=== PATIENT | male | born 1950 | race Caucasian/White ===

== ENCOUNTER 2019-11-30 18:58 | Emergency (ER) | payer MEDICARE, BC ==
--- NOTE | 2019-11-30 20:31 | ER Document Report ---
ED Medical Screen (RME) - General Chief Complaint: Urinary Problem Stated Complaint: BLOOD IN URINE, DIARRHEA Time Seen by Provider: 11/30/19 20:28 - HPI Notes: 11/30/19 20:30 Patient is a 69-year-old male with a history of hypertension who presents complaining of feeling fatigued and having nasal congestion/discharge, occasional dry cough, dark-colored urine, diarrhea over the past 2 to 3 days. Patient states that he has felt some low-grade fevers as well. No chest pain, shortness of breath, or abdominal pain. I have treated and performed a rapid initial assessment of this patient. A comprehensive ED assessment and evaluation of the patient, analysis of test results and completion of medical decision making process will be conducted by additional ED providers. PHYSICAL EXAMINATION: GENERAL: Well-appearing, well-nourished and in no acute distress. Answers questions appropriately. Lungs: CTAB Heart: RRR - Related Data Allergies/Adverse Reactions: No Known Allergies Allergy (Unverified 11/30/19 20:26) Physical Exam - Vital signs Vitals: Temp Pulse Resp BP Pulse Ox 99.3 F 86 16 152/92 H 92 11/30/19 19:07 11/30/19 19:07 11/30/19 19:07 11/30/19 19:07 11/30/19 19:07 Course - Vital Signs Vital signs: Temp Pulse Resp BP Pulse Ox 99.3 F 86 16 152/92 H 92 11/30/19 19:07 11/30/19 19:07 11/30/19 19:07 11/30/19 19:07 11/30/19 19:07
--- NOTE | 2019-11-30 20:55 | RADIOLOGY REPORT (SQ) ---
EXAM DESCRIPTION: XR CHEST 2 VIEWS COMPLETED DATE/TME: 11/30/2019 20:28 CLINICAL HISTORY: 69 years, Male, cough COMPARISON: None. NUMBER OF VIEWS: Two TECHNIQUE: Frontal and lateral radiographs were acquired LIMITATIONS: None. FINDINGS: Cardiac and mediastinal contours are normal. However, the thoracic aorta is somewhat tortuous. Lungs are clear. No pleural effusion or pneumothorax. IMPRESSION: No acute disease. copyright 2010 [employer]- All Rights Reserved
[2019-11-30 21:06] LABS: ABSOLUTE EOSINOPHILS # (AUTO) 0.1 10^3/uL (0.0-0.6); ABSOLUTE LYMPHOCYTES (AUTO) 0.6 10^3/uL (0.5-4.7); ABSOLUTE MONOCYTES (AUTO) 0.3 10^3/uL (0.1-1.4); ABSOLUTE NEUT (AUTO) 3.1 10^3/uL (1.7-8.2); BASOPHILS % (AUTO) 0.3 % (0-2); HEMATOCRIT 47.3 % (37.9-51.0); HEMOGLOBIN 16.2 g/dL (13.5-17.0); LYMPHOCYTES % (AUTO) 14.7 % (13-45); MEAN CORPUSCULAR HEMOGLOBIN 30.7 pg (27.0-33.4); MEAN CORPUSCULAR HGB CONC 34.2 g/dL (32.0-36.0); MEAN CORPUSCULAR VOLUME 90 fl (80-97); PLATELET COUNT 181 10^3/uL (150-450); RED BLOOD COUNT 5.27 10^6/uL (4.35-5.55); RED CELL DISTRIBUTION WIDTH 15.1 % (11.5-14.0); TOTAL CELLS COUNTED % (AUTO) 100 %; WHITE BLOOD COUNT 4.2 10^3/uL (4.0-10.5)
[2019-11-30 21:23] LABS: APPEARANCE,URINE SLIGHTLY-CLOUDY; BILIRUBIN,URINE NEGATIVE (NEGATIVE); COLOR,URINE YELLOW; GLUCOSE, URINE NEGATIVE (NEGATIVE); KETONES,URINE NEGATIVE (NEGATIVE); PROTEIN,URINE 30 mg/dL (NEGATIVE); URINE SPECIFIC GRAVITY 1.006; UROBILINOGEN,URINE NEGATIVE mg/dL (<2.0)
[2019-11-30 21:29] LABS: ALBUMIN 3.9 g/dL (3.5-5.0); ALKALINE PHOSPHATASE 69 U/L (38-126); ANION GAP 9 (5-19); ASPARTATE AMINO TRANSFERASE 33 U/L (17-59); BILIRUBIN,DIRECT 0.2 mg/dL (0.0-0.4); BILIRUBIN,TOTAL 0.5 mg/dL (0.2-1.3); BLOOD UREA NITROGEN 19 mg/dL (7-20); CALCIUM 9.1 mg/dL (8.4-10.2); CARBON DIOXIDE 29 mmol/L (22-30); CHLORIDE 102 mmol/L (98-107); GLUCOSE 110 mg/dL (75-110); POTASSIUM 4.2 mmol/L (3.6-5.0); TOTAL PROTEIN 7.2 g/dL (6.3-8.2)
[2019-11-30 21:44] LABS: A TYPE INFLUENZA AG POSITIVE (NEGATIVE); B INFLUENZA AG NEGATIVE (NEGATIVE)
--- NOTE | 2019-12-01 01:00 | ER Document Report ---
ED Flu Like - General Chief Complaint: Flu Symptoms Stated Complaint: BLOOD IN URINE, DIARRHEA Time Seen by Provider: 11/30/19 20:28 Notes: CHIEF COMPLAINT: Flulike symptoms for 3 days HPI: 69-year-old male presenting to the emergency department complaining of nasal congestion, myalgia, low-grade fever over the last 3 days. No shortness of breath. No chest pain. No abdominal pain. Patient noticed some darkening of his urine and believe there might of been blood in the urine. Patient states he has a urologist in [place] that he has an appointment with in 2 weeks. Patient is down visiting for the next 2 weeks. He denies other complaints at this time, states his has similar symptoms ROS: See HPI - all other systems were reviewed and are otherwise negative Constitutional: no fever Eyes: no drainage, no blurred vision ENT: Positive runny nose, no sore throat Cardiovascular: no chest pain Resp: no SOB, positive cough GI: no vomiting, no diarrhea, no abdominal pain : no dysuria, positive hematuria Integumentary: no rash Allergy: no hives Musculoskeletal: no extremity pain or swelling, positive myalgia Neurological: no numbness/tingling, no weakness MEDICATIONS: I agree with the patient medications as charted by the RN. ALLERGIES: I agree with the allergies as charted by the RN. PAST MEDICAL HISTORY/PAST SURGICAL HISTORY: Reviewed and agree as charted by RN. SOCIAL HISTORY: Reviewed and agree as charted by RN. FAMILY HISTORY: No significant familial comorbid conditions directly related to patient complaint EXAM: Reviewed vital signs as charted by RN. CONSTITUTIONAL: Alert and oriented and responds appropriately to questions. Well-appearing; well-nourished, no acute distress HEAD: Normocephalic; atraumatic EYES: PERRL; Conjunctivae clear, sclerae non-icteric ENT: normal nose; no rhinorrhea; moist mucous membranes; pharynx without lesions noted, no uvula edema or deviation, no tonsillar hypertrophy, phonation normal NECK: Supple without meningismus; non-tender; no cervical lymphadenopathy, no masses CARD: RRR; no murmurs, no clicks, no rubs, no gallops; symmetric distal pulses RESP: Normal chest excursion without splinting or tachypnea; breath sounds clear and equal bilaterally; no wheezes, no rhonchi, no rales, pulse oximetry ABD/GI: Normal bowel sounds; non-distended; soft, non-tender, no rebound, no guarding; no palpable organomegaly or masses. BACK: The back appears normal and is non-tender to palpation, there is no CVA tenderness EXT: Normal ROM in all joints; non-tender to palpation; no cyanosis, no effusions, no edema SKIN: Normal color for age and race; warm; dry; good turgor; no acute lesions noted NEURO: Moves all extremities equally; Motor and sensory function intact PSYCH: The patient's mood and manner are appropriate. Grooming and personal hygiene are appropriate. MDM: 69-year-old male presenting for darkening of his urine with flulike symptoms. Patient is positive for influenza A. Chest x-ray did not show evidence of infiltrate. I discussed Tamiflu with the patient at length and he declines at this time preferring symptomatic treatment. He does have hematuria, has an appointment for prostate issues with his urologist in [place] in 2 weeks. I will also give the patient referral to local urology, he will call his primary urologist in [place] tomorrow to discuss follow-up options will return if symptoms worsen. Hydrate well at home, Tylenol for discomfort, avoid ibuprofen given the hematuria. Patient's other lab work did not show acute emergent abnormalities TRAVEL OUTSIDE OF THE [place] IN LAST 30 DAYS: No - Related Data Allergies/Adverse Reactions: No Known Allergies Allergy (Unverified 11/30/19 20:26) Past Medical History - Social History Smoking Status: Former Smoker Family History: Reviewed & Not Pertinent Patient has suicidal ideation: No Patient has homicidal ideation: No Physical Exam - Vital signs Vitals: Temp Pulse Resp BP Pulse Ox 99.3 F 86 16 152/92 H 92 11/30/19 19:07 11/30/19 19:07 11/30/19 19:07 11/30/19 19:07 11/30/19 19:07 Course - Vital Signs Vital signs: Temp Pulse Resp BP Pulse Ox 99.3 F 86 16 152/92 H 92 11/30/19 19:07 11/30/19 19:07 11/30/19 19:07 11/30/19 19:07 11/30/19 19:07 - Laboratory Result Diagrams: 11/30/19 20:40 02/13/20 20:40 Laboratory results interpreted by me: 11/30/19 11/30/19 20:40 20:40 RDW 15.1 H Urine Protein 30 H Urine Blood LARGE H Discharge - Discharge Clinical Impression: Influenza A Hematuria Qualifiers: Hematuria type: unspecified type Qualified Code(s): R31.9 - Hematuria, unspecified Condition: Stable Disposition: HOME, SELF-CARE Additional Instructions: You were positive for influenza A today. You declined Tamiflu. Hydrate well at home. Tylenol for discomfort avoid ibuprofen given the hematuria that was noted today. Follow-up with your primary urologist in [place] by phone to discuss further management options. A referral has also been given to you to a local urologist if you should choose to see them. Return for worsening condition. Referrals: KELLY MICHAELS MD [NO LOCAL MD] - Follow up as needed
[2019-12-01 01:05] VITALS: BP 144/97
== END 2019-12-01 01:42 | disposition home or self-care (01) ==
LOC: ER 18:58
DX: J10.1 Influenza due to other identified influenza virus with other respiratory manifestations (principal); R31.9 Hematuria, unspecified; R09.81 Nasal congestion; R05 Cough; Z87.891 Personal history of nicotine dependence
CPT/HCPCS: 36415; 71046; 80053; 81001; 85025; 87804; 99283